=== PATIENT | female | born 1955 | race African-American/Black ===

== ENCOUNTER → 2016-04-01 | Day surgery (SDC) | payer OTHER ==
[~2016-04-01] VITALS: Ht 172.7 cm; Wt 59.0 kg
[~2016-04-01] MED LIST: Dexamethasone Inj PF*Surgery use* 10 MG/ML VIAL IV ONE; ROBAXIN500 MG PO; TRAZODONE HCL150 MG ORAL; WELLBUTRIN XL150 MG ORAL
[2016-04-01 08:37] VITALS: BP 114/74
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
--- NOTE | 2016-04-01 09:09 | Pre-Procedure Note/Attestation ---
Pre-Procedure Note/Attestation Complete Prior to Procedure Planned Procedure: not applicable Procedure Narrative: cervical epidural steroid injection under fluoroscopic guidance. Indications for Procedure Pre-Operative Diagnosis: cervical disc displacement with radiculopathy Attestation I attest that I discussed the nature of the procedure; its benefits; risks and complications; and alternatives (and the risks and benefits of such alternatives ), prior to the procedure, with the patient (or the patient's legal cash posting representative). I attest that, if there was a reasonable possibility of needing a blood transfusion, the patient (or the patient's legal cash posting representative) was given the [place] [facility] [employer] [facility] standardized written summary, pursuant to the [place] Blood Safety Act ([place] Health and Safety Code # 1645, as amended). I attest that I re-evaluated the patient just prior to the surgery and that there has been no change in the patient's H&P, except as documented below: CHANA VILLALOBOS M.D. Apr 01, 2016 09:09
[2016-04-01 09:35] VITALS: BP 123/75
--- NOTE | 2016-04-01 10:36 | Brief Operative Note ---
Immediate Post Operative Note Operative Note Chief Complaint: neck pain Pre-op Diagnosis: cervical disc displacement with radiculopathy Procedure: cervical epidural steroid injection Post-op Diagnosis: cervical disc displacement Post-op Diagnosis: same as pre-op Findings: consistent w/pre-op dx studies Surgeon: Chana Watts MD Maintenance Person: none Additional Surgeons: none Anesthesiologist: none Anesthesia: local Specimen: none Complications: none Condition: stable Fluids: none Estimated Blood Loss: none Drains: none Packing: none Tourniquet time: 0 - min Implant(s) used?: CHANA Ayala M.D. Apr 01, 2016 10:36
--- NOTE | 2016-04-01 10:37 | Discharge Summary ---
Discharge Summary Hospital Course Date of Admission 04/01/16 Date of Discharge 04/01/16 Admitting Diagnosis cervical disc displacement Reason for Hospitalization: short stay HPI Olinda Leiva is a 60 year old female who was admitted on for Cervical Disc Displacement Consultations none Procedures cervical epidural steroid injection Hospital Course short stay Discharge Discharge Disposition Patient was discharged to Discharge Diagnoses: (1) Displacement of cervical intervertebral disc with radiculopathy Discharge Instructions Discharge Instructions Follow up with: Dr. Chana Villalobos Diet: regular Activity: okay to shower For Surgical Patients Dressing Care: may change Contact your physician for: bleeding, pain, tenderness, redness, swelling, yellowish discharge in the op. site CHANA VILLALOBOS M.D. Apr 01, 2016 10:37
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
== END | disposition home or self-care (01) ==
LOC: SDS 08:15
DX: M50.10 Cervical disc disorder with radiculopathy, unspecified cervical region (principal)
CPT/HCPCS: 62320; 62321; 77003